=== PATIENT | female | born 1980 | race Caucasian/White ===

== ENCOUNTER 2016-03-21 18:46 | Emergency (ER) | payer OTHER ==
[~2016-03-21] VITALS: Ht 162.6 cm; Wt 55.7 kg
[2016-03-21] MEDS ORDERED: PERCOCET 5/31 TABLET PO (21:05)
[2016-03-21 21:43] VITALS: BP 106/75
== END 2016-03-21 21:32 | disposition home or self-care (01) ==
LOC: EXP 18:46 → EME 18:46 → EXP 21:32
PROC: 2W3RX1Z Immobilization of Left Lower Leg using Splint (ICD-10-PCS; principal; 2016-03-21)
DX: S92.352A Displaced fracture of fifth metatarsal bone, left foot, initial encounter for closed fracture (principal); S92.322A Displaced fracture of second metatarsal bone, left foot, initial encounter for closed fracture; V09.9XXA Pedestrian injured in unspecified transport accident, initial encounter
CPT/HCPCS: 73630; 99281; 99285